=== PATIENT | male | born 1940 | race Caucasian/White ===

== ENCOUNTER 2021-12-13 18:31 | Inpatient (IN) | payer MEDICARE, OTHER ==
[~2021-12-13] VITALS: Ht 172.7 cm; Wt 61.7 kg
--- NOTE | 2021-12-13 18:31 | NUR ---
Patient BIB [facility], complaints of altered mental status started today. Alert oriented x2-3. Vitals stable.
--- NOTE | 2021-12-13 19:15 | NUR ---
Patient is non verbal and only follow limited commands. NAD noted
[2021-12-13 19:19] LABS: HEMATOCRIT 33.2 % (36.7-47.1); MEAN CORPUSCULAR HEMOGLOBIN 27.4 uug (23.8-33.4); MEAN CORPUSCULAR VOLUME 83.5 fL (73.0-96.2); PLATELET COUNT (AUTO) 306 K/uL (152-348)
[2021-12-13 19:24] LABS: CARBON DIOXIDE 30 mmol/L (21-32); CHLORIDE 102 mmol/L (98-107); CREATININE 0.7 mg/dL (0.6-1.3); GLUCOSE 122 mg/dL (74-106); UREA NITROGEN, BLOOD 17 mg/dL (7-18)
[2021-12-13 19:29] LABS: ETHANOL < 3 MG/DL (0-0)
[2021-12-13 19:32] LABS: ALANINE AMINOTRANSFERASE 29 U/L (16-63); ALKALINE PHOSPHATASE 77 U/L (50-136); ASPARTATE AMINOTRANSFERASE 13 U/L (15-37); BILIRUBIN,DIRECT 0.1 mg/dL (0.0-0.2); BILIRUBIN,TOTAL 0.5 mg/dL (0.2-1.0); TOTAL PROTEIN, SERUM 6.8 g/dL (6.4-8.2)
[2021-12-13 19:37] LABS: ACETAMINOPHEN < 2.0 ug/mL (10-30)
[2021-12-13 19:58] LABS: *BILIRUBIN,URIN NEGATIVE (NEGATIVE); *BLOOD, URINE 2+ (NEGATIVE); *CLARITY,URINE CLOUDY (CLEAR); *COLOR,URINE YELLOW (YELLOW); *KETONES,URINE NEGATIVE (NEGATIVE); *UROBILINOGEN,URINE 0.2 E.U./dl (NORMAL); LEUKOCYTE ESTERASE ,URINE 3+ (NEGATIVE); NITRITE, URINE POSITIVE (NEGATIVE); UGLUCOSE NEGATIVE (NEGATIVE)
[2021-12-13 20:15] LABS: *AMPHETAMINE, URINE NEGATIVE (NEGATIVE); *CANNABINOID, URINE NEGATIVE (NEGATIVE); *COCCAINE, URINE NEGATIVE (NEGATIVE); *OPIATE, URINE NEGATIVE (NEGATIVE); *PHENCYCLIDINE SCREEN,URINE NEGATIVE (NEGATIVE)
[2021-12-13] MEDS ORDERED: CEFTRIAXONE /D5W 50ML IVPB **ER PYXIS IV ONE (20:44)
[2021-12-13] MEDS ORDERED: IV NS 1000 ML 1,000 ML IV PRN (20:45)
[2021-12-13] MEDS ORDERED: ACETAMINOPHEN 325 MG TABLET PO PRN (20:45)
[2021-12-13] MEDS ORDERED: REMEDY ESSENTIAL ZINC PASTE 113 GM TP PRN (20:45)
[2021-12-13] MEDS ORDERED: MAGNESIUM HYDROXIDE 30 ML LIQUID UDC PO PRN (20:45)
[2021-12-13] MEDS ORDERED: ONDANSETRON 4 MG/2 ML VIAL IV PRN (20:45)
[2021-12-13] MEDS ORDERED: CEFTRIAXONE 1 G in IV DEXTROSE 5% 50 ML IV ONE (20:45)
[2021-12-13] MEDS ORDERED: AMLO10TA59 GT (20:46)
[2021-12-13] MEDS ORDERED: OLAN5TAB70 SL (20:46)
[2021-12-13] MEDS ORDERED: LOSA100T31 GT (20:46)
[2021-12-13] MEDS ORDERED: THIA100T74 GT (20:46)
[2021-12-13] MEDS ORDERED: MAGN400O6 GT (20:46)
[2021-12-13] MEDS ORDERED: CHOL-35 GT (20:46)
[2021-12-13] MEDS ORDERED: ACET-2154 GT (20:46)
[2021-12-13] MEDS ORDERED: TERA2CAP4 GT (20:46)
[2021-12-13] MEDS ORDERED: ATOR80TA GT (20:46)
[2021-12-13] MEDS ORDERED: ASCO-375 GT (20:46)
[2021-12-13] MEDS ORDERED: METF-495 GT (20:46)
[2021-12-13] MEDS ORDERED: MULT-594 GT (20:46)
[2021-12-13] MEDS ORDERED: MEMA10TA GT (20:46)
[2021-12-13] MEDS ORDERED: CLOT15CR5 TP (20:46)
[2021-12-13] MEDS ORDERED: INSU100I47 SQ (20:46)
[2021-12-13] MEDS ORDERED: EMPA10TA GT (20:46)
[2021-12-13] MEDS ORDERED: HYDR-894 GT (20:46)
[2021-12-13] MEDS ORDERED: POVI100M TP (20:46)
[2021-12-13] MEDS ORDERED: DONE5TAB34 GT (20:46)
[2021-12-13] MEDS ORDERED: BISA10SU61 RC (20:46)
[2021-12-13] MEDS ORDERED: MAGNESIUM HYDROXIDE 30 ML LIQUID UDC GT PRN (21:00)
[2021-12-13] MEDS ORDERED: BLOOD SUGAR DIAGNOSTIC 1 EACH STRIP VI SCH (21:00)
[2021-12-13] MEDS ORDERED: BISACODYL 10 MG SUPP.RECT RC PRN (21:00)
[2021-12-13] MEDS ORDERED: INSULIN REGULAR, HUMAN 300 UNITS/3 ML VIAL SQ PRN (21:00)
[2021-12-13] MEDS ORDERED: INSULIN REGULAR, HUMAN 300 UNIT/3 ML VIAL SQ PRN (21:00)
[2021-12-13] MEDS ORDERED: DEXTROSE 50% 50 ML DISP.SYRIN IV PRN (21:00)
[2021-12-13 22:45] LABS: BACTERIA,URINE MANY /HPF (NONE SEEN); RBC,URINE 20-50 /HPF (0-3); SQUAMOUS EPITHELIAL CELL,UR MODERATE /HPF (NONE SEEN); WBC,URINE 50-80 /HPF (0-3)
--- NOTE | 2021-12-13 23:00 | NUR ---
report given to Pamella PATE
--- NOTE | 2021-12-13 23:00 | NUR ---
patient will be admitted to TELE room 322 under Kimberley Gao NP
[2021-12-13] MEDS ORDERED: ACETAMINOPHEN 325 MG TABLET GT PRN (23:45)
[2021-12-14] VITALS: BP 151/73
--- NOTE | 2021-12-14 00:06 | NUR ---
Pt. admitted to TELE , under care of Kimberley Gao Belongs List completed Pamella PATE aware of patient's arrival
[2021-12-14] MEDS: hydrALAZINE HCL 25 MG TABLET GT SCH ×4 (00:51→21:18)
[2021-12-14] MEDS: DONEPEZIL 5 MG TABLET GT SCH ×2 (00:51→20:27)
--- NOTE | 2021-12-14 01:00 | NUR ---
Admitted pt to tele from ER accompanied by ER Nurse. Pt is alert and oriented to self, responsive to light pain, and mumbles some words. No s/sx of pain noted. Saline lock on R AC #20 patent and intact. Initial assessment and full body assessment done. Noted with pressure sore on sacrum, picture taken and placed in chart. G-tube remains patent, flushed with H2O. NSR on tele. All needs attended. Safety precautions observed. Will continue to monitor.
[2021-12-14] MEDS: GLUCERNA 1.2 1000ML LIQUID GT PRN (02:12)
[2021-12-14 04:00] VITALS: BP_SYST 131; BP_SYST 95; BP_DIAS 47; BP_DIAS 65
[2021-12-14] MEDS: BLOOD SUGAR DIAGNOSTIC 1 EACH STRIP VI SCH ×4 (05:38→23:44)
--- NOTE | 2021-12-14 06:04 | NUR ---
Pt slept throughout the night with no respiratory distress. No s/sx of pain and discomfort noted. Started on Glucerna 1.2 at 30 ml/hr, currently at 50 ml/hr, goal is 65 ml/her, tolerated well. All needs attended. Will endorse to next shift for continuity of care.
[2021-12-14 07:31] LABS: HEMATOCRIT 31.8 % (36.7-47.1); MEAN CORPUSCULAR HEMOGLOBIN 27.7 uug (23.8-33.4); MEAN CORPUSCULAR VOLUME 82.6 fL (73.0-96.2); PLATELET COUNT (AUTO) 275 K/uL (152-348)
[2021-12-14 07:41] LABS: BILIRUBIN,TOTAL 0.6 mg/dL (0.2-1.0); CREATININE 0.7 mg/dL (0.6-1.3); MAGNESIUM 1.7 mg/dL (1.8-2.4); PHOSPHOROUS 3.9 mg/dL (2.5-4.9); POTASSIUM 3.9 mmol/L (3.5-5.1); TOTAL PROTEIN, SERUM 6.5 g/dL (6.4-8.2)
[2021-12-14] MEDS ORDERED: Medication Not On Formulary EA (Empagliflozin (Jardiance) 10 MG) GT SCH (09:00)
[2021-12-14] MEDS: MULTIVITAMINS,THERAPEUTIC TABLET GT SCH (09:55)
[2021-12-14] MEDS: ASCORBIC ACID 500 MG TABLET GT SCH (09:59)
[2021-12-14] MEDS: LOSARTAN POTASSIUM 50 MG TABLET GT SCH (09:59)
[2021-12-14] MEDS: THIAMINE HCL 100 MG TABLET GT SCH (09:59)
[2021-12-14] MEDS: AMLODIPINE 10 MG TABLET GT SCH (09:59)
[2021-12-14] MEDS: CHOLECALCIFEROL 1,000 UNIT TABLET GT SCH (10:00)
[2021-12-14] MEDS: MEMANTINE HCL 10 MG TABLET GT SCH (10:00)
[2021-12-14] MEDS: CLOTRIMAZOLE/BETAMET DIPROP CREAM 15 GM TUBE TP SCH (10:13)
[2021-12-14] MEDS ORDERED: MAGNESIUM OXIDE 400 MG TABLET GT ONE (10:45)
--- NOTE | 2021-12-14 12:01 | NUR ---
Patient is awake, son Richard at bed side, patient is tolerating feeding well, increased up to 60 ml/hr from 50 ml/hr
[2021-12-14 12:12] VITALS: BP 97/53
[2021-12-14] MEDS: INSULIN REGULAR, HUMAN 300 UNIT/3 ML VIAL SQ PRN ×2 (12:25→23:46)
[2021-12-14] MEDS ORDERED: PIPERACILLIN SODIUM/TAZOBACTAM 3.375 G in IV DEXTROSE 5% 50 ML IV ONE (16:00)
--- NOTE | 2021-12-14 16:14 | NUR ---
Patient is awake and alert to his name but asking questions like "when is this woman coming? And when is plane leaving?" in [place] language. No evidence of discomfort or distress. Will continue to monitor.
--- NOTE | 2021-12-14 16:16 | NUR ---
Per pharmacist Sharda request to call patient's family and ask to bring Jardiance 10 mg medication from home. His son Richard said that they will bring it tomorrow by non.
[2021-12-14 16:39] VITALS: BP 131/58
[2021-12-14] MEDS: ATORVASTATIN 40 MG TABLET GT SCH (20:27)
[2021-12-14] MEDS: TERAZOSIN 1 MG CAPSULE GT SCH (20:28)
[2021-12-14 20:38] VITALS: BP 131/56
[2021-12-14] MEDS ORDERED: CEFTRIAXONE 1 G in IV DEXTROSE 5% 50 ML IV SCH (21:00)
[2021-12-15] MEDS: PIPERACILLIN SODIUM/TAZOBACTAM 3.375 G in IV DEXTROSE 5% 100 ML IV SCH ×4 (00:31→23:13)
[2021-12-15 04:41] VITALS: BP 139/67
--- NOTE | 2021-12-15 05:47 | NUR ---
Slept throughout the night. No distress noted. GT flushed as needed. Tolerated feeding with no residual. Turned and repositioned for comfort. IV site intact, tolerated all medications given. Safety maintained throughout the night. Will endorse to day shift.
[2021-12-15] MEDS: hydrALAZINE HCL 25 MG TABLET GT SCH ×3 (06:30→21:00)
[2021-12-15] MEDS: BLOOD SUGAR DIAGNOSTIC 1 EACH STRIP VI SCH ×3 (06:38→17:52)
[2021-12-15 07:11] LABS: HEMATOCRIT 31.3 % (36.7-47.1); MEAN CORPUSCULAR HEMOGLOBIN 27.9 uug (23.8-33.4); MEAN CORPUSCULAR VOLUME 83.5 fL (73.0-96.2); PLATELET COUNT (AUTO) 299 K/uL (152-348)
[2021-12-15 07:26] LABS: CREATININE 0.7 mg/dL (0.6-1.3)
[2021-12-15] MEDS: INSULIN REGULAR, HUMAN 300 UNIT/3 ML VIAL SQ PRN ×3 (07:47→17:53)
[2021-12-15] MEDS: LOSARTAN POTASSIUM 50 MG TABLET GT SCH (09:00)
[2021-12-15] MEDS: AMLODIPINE 10 MG TABLET GT SCH (09:00)
[2021-12-15] MEDS: CLOTRIMAZOLE/BETAMET DIPROP CREAM 15 GM TUBE TP SCH (09:06)
[2021-12-15] MEDS: THIAMINE HCL 100 MG TABLET GT SCH (09:06)
[2021-12-15] MEDS: ASCORBIC ACID 500 MG TABLET GT SCH (09:06)
[2021-12-15] MEDS: CHOLECALCIFEROL 1,000 UNIT TABLET GT SCH (09:06)
[2021-12-15] MEDS: MEMANTINE HCL 10 MG TABLET GT SCH (09:06)
[2021-12-15] MEDS: MULTIVITAMINS,THERAPEUTIC TABLET GT SCH (09:06)
--- NOTE | 2021-12-15 09:57 | NUR ---
arousable to tactile stimuli. no ss of pain or sob. hob elevated. aspiration precaution at all times. gt intact and patent, no residual. safety maintained. needs attended. cont to monitor.
--- NOTE | 2021-12-15 10:30 | NUR ---
family brought in jardiance medication, endorsed to pharmacy
[2021-12-15 11:30] VITALS: BP 116/54
[2021-12-15] MEDS: JARDIANCE 25 MG PO SCH (12:09)
[2021-12-15 16:00] VITALS: BP 126/59
[2021-12-15 20:03] VITALS: BP 148/77
[2021-12-15] MEDS: MUPIROCIN 2% OINT 22 GM TUBE NS SCH (20:40)
[2021-12-15] MEDS: ATORVASTATIN 40 MG TABLET GT SCH (20:40)
[2021-12-15] MEDS: TERAZOSIN 1 MG CAPSULE GT SCH (20:41)
[2021-12-15] MEDS: DONEPEZIL 5 MG TABLET GT SCH (20:41)
[2021-12-16] MEDS: BLOOD SUGAR DIAGNOSTIC 1 EACH STRIP VI SCH ×5 (00:01→23:38)
[2021-12-16] MEDS: INSULIN REGULAR, HUMAN 300 UNIT/3 ML VIAL SQ PRN ×5 (00:02→23:45)
[2021-12-16 04:03] VITALS: BP 136/65
[2021-12-16] MEDS: hydrALAZINE HCL 25 MG TABLET GT SCH ×3 (05:17→22:07)
[2021-12-16 06:48] LABS: HEMATOCRIT 32.4 % (36.7-47.1); MEAN CORPUSCULAR HEMOGLOBIN 27.8 uug (23.8-33.4); MEAN CORPUSCULAR VOLUME 83.4 fL (73.0-96.2); PLATELET COUNT (AUTO) 275 K/uL (152-348)
[2021-12-16] MEDS: MEMANTINE HCL 10 MG TABLET GT SCH (08:22)
[2021-12-16] MEDS: ASCORBIC ACID 500 MG TABLET GT SCH (08:22)
[2021-12-16] MEDS: LOSARTAN POTASSIUM 50 MG TABLET GT SCH (08:22)
[2021-12-16] MEDS: CHOLECALCIFEROL 1,000 UNIT TABLET GT SCH (08:22)
[2021-12-16] MEDS: THIAMINE HCL 100 MG TABLET GT SCH (08:22)
[2021-12-16] MEDS: MULTIVITAMINS,THERAPEUTIC TABLET GT SCH (08:22)
[2021-12-16] MEDS: PIPERACILLIN SODIUM/TAZOBACTAM 3.375 G in IV DEXTROSE 5% 100 ML IV SCH ×3 (08:23→23:17)
[2021-12-16] MEDS: AMLODIPINE 10 MG TABLET GT SCH (08:23)
[2021-12-16] MEDS: JARDIANCE 25 MG PO SCH (08:31)
[2021-12-16] MEDS: MUPIROCIN 2% OINT 22 GM TUBE NS SCH ×2 (08:31→20:32)
[2021-12-16] MEDS: CLOTRIMAZOLE/BETAMET DIPROP CREAM 15 GM TUBE TP SCH (08:31)
--- NOTE | 2021-12-16 08:44 | NUR ---
awakens to stimuli oriented to name, no ss of pain or sob. gt intact no residual noted. iv access intact no ss of phlebitis or infiltration. hob elevated. safety measures in place kept comfortable. needs attended.
[2021-12-16 11:31] VITALS: BP 132/59
[2021-12-16] MEDS: GLUCERNA 1.2 1000ML LIQUID GT PRN (13:34)
[2021-12-16 16:00] VITALS: BP 126/58
[2021-12-16 20:06] VITALS: BP 122/62
[2021-12-16] MEDS: TERAZOSIN 1 MG CAPSULE GT SCH (20:33)
[2021-12-16] MEDS: ATORVASTATIN 40 MG TABLET GT SCH (20:33)
[2021-12-16] MEDS: DONEPEZIL 5 MG TABLET GT SCH (20:33)
[2021-12-17 04:09] VITALS: BP 118/55
[2021-12-17] MEDS: BLOOD SUGAR DIAGNOSTIC 1 EACH STRIP VI SCH ×3 (05:25→18:22)
[2021-12-17] MEDS: INSULIN REGULAR, HUMAN 300 UNIT/3 ML VIAL SQ PRN ×2 (05:29→12:26)
[2021-12-17] MEDS: hydrALAZINE HCL 25 MG TABLET GT SCH ×3 (05:33→21:20)
--- NOTE | 2021-12-17 06:50 | NUR ---
Patient awake but with confusion, no sob no chest pain, on GTF tolerate well no residual noted, no diarrhea. Rendered total assist with adl's, turn and reposition, cont abx for UTI with no adverse reaction noted, no s/s of pain at this time, cont to monitor.
[2021-12-17] MEDS: PIPERACILLIN SODIUM/TAZOBACTAM 3.375 G in IV DEXTROSE 5% 100 ML IV SCH (07:54)
[2021-12-17] MEDS: MULTIVITAMINS,THERAPEUTIC TABLET GT SCH (09:08)
[2021-12-17] MEDS: MEMANTINE HCL 10 MG TABLET GT SCH (09:08)
[2021-12-17] MEDS: LOSARTAN POTASSIUM 50 MG TABLET GT SCH (09:09)
[2021-12-17] MEDS: THIAMINE HCL 100 MG TABLET GT SCH (09:09)
[2021-12-17] MEDS: ASCORBIC ACID 500 MG TABLET GT SCH (09:09)
[2021-12-17] MEDS: JARDIANCE 25 MG PO SCH (09:09)
[2021-12-17] MEDS: CHOLECALCIFEROL 1,000 UNIT TABLET GT SCH (09:09)
[2021-12-17] MEDS: AMLODIPINE 10 MG TABLET GT SCH (09:09)
[2021-12-17] MEDS: CLOTRIMAZOLE/BETAMET DIPROP CREAM 15 GM TUBE TP SCH (09:10)
[2021-12-17] MEDS: MUPIROCIN 2% OINT 22 GM TUBE NS SCH ×2 (09:10→21:14)
--- NOTE | 2021-12-17 10:19 | NUR ---
elicia bardales on the floor and saw the pt, no new order received.
[2021-12-17 11:30] VITALS: BP 114/53
[2021-12-17] MEDS: CEFTRIAXONE 1 G in IV DEXTROSE 5% 50 ML IV SCH (13:12)
--- NOTE | 2021-12-17 13:28 | NUR ---
WOUND CARE CONSULT: PT SEEN FOR SACRAL/BUTTOCKS REDNESS WHICH IS BLANCHABLE WITH SOME MOISTURE ASSOCIATED/EXCORIATED AREAS, PRESENT ON ADMISSION. RECOMMENDATIONS MADE FOR SKIN PROTECTION. DISCUSSED WITH NURSING STAFF. MD IN AGREEMENT WITH PLAN OF CARE.
[2021-12-17] MEDS: GLUCERNA 1.2 1000ML LIQUID GT PRN (14:22)
[2021-12-17 16:00] VITALS: BP 111/55
--- NOTE | 2021-12-17 16:47 | NUR ---
picked up by transportation for scheduled mri at [facility].
[2021-12-17 17:55] VITALS: BP 117/50
--- NOTE | 2021-12-17 18:19 | NUR ---
came back via [facility] from [facility] at 1755 in stable condition, alert and responsive. no sob. gtf reconnected.
--- NOTE | 2021-12-17 18:45 | NUR ---
sleeps intermittently. no ss of pain or sob. nonverbal. tolerating gtf no nvd. needs attended. safety measures in place.
--- NOTE | 2021-12-17 19:45 | NUR ---
RECEIVED PATIENT IN BED. AWAKE, ALERT, NON VERBAL. ON ROOM AIR. WITH GTUBE FEEDING RUNNING AT 65CC/HR. RECEIVED ORDERS TO INCREASE TO 75CC/HR. PATIENT SHOWS NO SIGN OF DISTRESS AT THIS TIME. REPOSITIONED PATIENT. CLOSELY MONITORED.
[2021-12-17 20:23] VITALS: BP 120/47
[2021-12-17] MEDS: DONEPEZIL 5 MG TABLET GT SCH (21:14)
[2021-12-17] MEDS: ATORVASTATIN 40 MG TABLET GT SCH (21:14)
[2021-12-17] MEDS: TERAZOSIN 1 MG CAPSULE GT SCH (21:40)
[2021-12-18] MEDS: BLOOD SUGAR DIAGNOSTIC 1 EACH STRIP VI SCH ×4 (00:09→17:53)
[2021-12-18] MEDS: INSULIN REGULAR, HUMAN 300 UNIT/3 ML VIAL SQ PRN ×4 (00:09→17:54)
[2021-12-18 04:12] VITALS: BP 130/63
[2021-12-18] MEDS: hydrALAZINE HCL 25 MG TABLET GT SCH ×2 (05:15→14:19)
[2021-12-18] MEDS: GLUCERNA 1.2 1000ML LIQUID GT PRN (05:29)
--- NOTE | 2021-12-18 06:47 | NUR ---
PATIENT SLEPT THROUGH THE NIGHT WITH NO COMPLAINS. TOLERATED GTUBE FEEDING. WOUND CARE TREATMENT DONE. PHOTOS OF WOUND TAKEN AND ATTACHED TO CHART. SAFETY PRECAUTIONS MAINTAINED. ENDORSED TO DAY SHIFT.
[2021-12-18] MEDS: CHOLECALCIFEROL 1,000 UNIT TABLET GT SCH (09:07)
[2021-12-18] MEDS: ASCORBIC ACID 500 MG TABLET GT SCH (09:08)
[2021-12-18] MEDS: AMLODIPINE 10 MG TABLET GT SCH (09:08)
[2021-12-18] MEDS: MULTIVITAMINS,THERAPEUTIC TABLET GT SCH (09:08)
[2021-12-18] MEDS: LOSARTAN POTASSIUM 50 MG TABLET GT SCH (09:08)
[2021-12-18] MEDS: THIAMINE HCL 100 MG TABLET GT SCH (09:08)
[2021-12-18] MEDS: MEMANTINE HCL 10 MG TABLET GT SCH (09:08)
[2021-12-18] MEDS: MUPIROCIN 2% OINT 22 GM TUBE NS SCH (09:09)
[2021-12-18] MEDS: CLOTRIMAZOLE/BETAMET DIPROP CREAM 15 GM TUBE TP SCH (09:09)
[2021-12-18] MEDS: JARDIANCE 25 MG PO SCH (09:09)
[2021-12-18] MEDS ORDERED: GLUCERNA 1.2 1000ML LIQUID GT PRN (09:30)
[2021-12-18 11:53] VITALS: BP 119/46
[2021-12-18] MEDS: CEFTRIAXONE 1 G in IV DEXTROSE 5% 50 ML IV SCH (14:19)
[2021-12-18 16:00] VITALS: BP 118/55
[2021-12-18] MEDS ORDERED: DONE10TA44 GT (16:41)
[2021-12-18] MEDS ORDERED: SULF1TAB48 PO (16:41)
[2021-12-18] MEDS ORDERED: MEMA10TA GT (16:41)
--- NOTE | 2021-12-18 18:49 | NUR ---
Discharged patient to SNF via ambulance. Gtube intact. Skin care done. Report given to RIO Drake of [facility]. No acute distress identified. no concerns noted. made aware. belonging list checked/no belongings noted. kept safe at all times, turned and repositioned.
[2021-12-18] MEDS ORDERED: DONEPEZIL 10 MG TABLET GT SCH (21:00)
[2021-12-19] MEDS ORDERED: MEMANTINE HCL 10 MG TABLET GT SCH (09:00)
== END 2021-12-18 18:40 | DRG 689 ==
LOC: ER 18:38 → TELE3 23:18 → MEDSURG3 12-14 19:50
PROVIDERS: ADMIT Nurse Practitioner Acute Care; ATTEND Registered Nurse
DX: N39.0 Urinary tract infection, site not specified (principal); G93.41 Metabolic encephalopathy; F05 Delirium due to known physiological condition; B96.89 Other specified bacterial agents as the cause of diseases classified elsewhere; R31.9 Hematuria, unspecified; E11.9 Type 2 diabetes mellitus without complications; E78.5 Hyperlipidemia, unspecified; F39 Unspecified mood [affective] disorder; I10 Essential (primary) hypertension; I25.10 Atherosclerotic heart disease of native coronary artery without angina pectoris; Z87.820 Personal history of traumatic brain injury; Z87.01 Personal history of pneumonia (recurrent); R13.10 Dysphagia, unspecified; Z91.81 History of falling; R53.1 Weakness; Z20.822 Contact with and (suspected) exposure to COVID-19; Z93.1 Gastrostomy status; L24.A0 Irritant contact dermatitis due to friction or contact with body fluids, unspecified; Z79.4 Long term (current) use of insulin; F01.50 Vascular dementia, unspecified severity, without behavioral disturbance, psychotic disturbance, mood disturbance, and anxiety; Z79.899 Other long term (current) drug therapy
CPT/HCPCS: 36415; 70450; 70551; 71045; 83605; 83735; 84100; 84443; 84484; 85025; 85730; 87077; 87086; 93005; 97161; A4663; A6209; A6213; C1758; G0378; G0480; J0696; J1815; J2543; J7040